=== PATIENT | female | born 1985 | race Hispanic/Latino ===

== ENCOUNTER 2024-05-12 13:15 | Emergency (ER) | payer SELFPAY ==
[2024-05-12] MEDS: predniSONE 20 MG Tab PO STA (14:35)
[2024-05-12] MEDS: Lidocaine 4% 1 each Patch TOP STA (14:35)
[2024-05-12] MEDS: Acetaminophen/HYDROcodone 325-5 MG Tab PO ONE (14:36)
== END 2024-05-12 15:49 | disposition home or self-care (01) ==
LOC: MW.ED 13:15
DX: M54.41 Lumbago with sciatica, right side (principal); Z79.899 Other long term (current) drug therapy; Z88.5 Allergy status to narcotic agent; Z75.8 Other problems related to medical facilities and other health care
CPT/HCPCS: 99283; A9270

== ENCOUNTER 2024-05-21 07:54 | Emergency (ER) | payer SELFPAY ==
[2024-05-21] MEDS: Acetaminophen/HYDROcodone 325-5 MG Tab PO ONE (08:02)
[2024-05-21] MEDS: Cephalexin 500 MG Cap PO ONE (08:42)
== END 2024-05-21 09:09 | disposition home or self-care (01) ==
LOC: MW.ED 07:54
DX: L03.113 Cellulitis of right upper limb (principal); Z88.8 Allergy status to other drugs, medicaments and biological substances; Z79.899 Other long term (current) drug therapy; Z75.8 Other problems related to medical facilities and other health care
CPT/HCPCS: 73110; 99283; A9270